=== PATIENT | female | born 1975 ===

== ENCOUNTER 2018-09-17 12:56 | Emergency (ER) | payer BC, MEDICAID ==
[2018-09-17 13:14] VITALS: BP 126/81; PULSE 78; RESP 18; TEMP 97.4; O2SAT 100
--- NOTE | 2018-09-17 14:28 | C.PDOC ---
History Of Present Illness 42 year old female presents to ED with complaint of left wrist and left 4th finger pain since last night. Patient states that she was out drinking with her friends last and may have traumatized her left hand, but is unsure. She denies any new numbness or weakness. Time Seen by Provider: 09/17/18 13:20 Chief Complaint (Nursing): Finger,Hand,&Wrist History Per: Patient History/Exam Limitations: no limitations Onset/Duration Of Symptoms: Days (1) Current Symptoms Are (Timing): Still Present Quality: "Pain" Past Medical History Reviewed: Historical Data, Nursing Documentation, Vital Signs Vital Signs: Last Vital Signs Temp 97.4 F L 09/17/18 13:10 Pulse 78 09/17/18 13:10 Resp 18 09/17/18 13:10 BP 126/81 09/17/18 13:10 Pulse Ox 100 09/17/18 13:10 - Medical History PMH: Anxiety, Depression, Hypothyroidism Surgical History: Appendectomy, Cholecystectomy Family History: States: Unknown Family Hx - Social History Hx Alcohol Use: Yes Hx Substance Use: No - Immunization History Hx Tetanus Toxoid Vaccination: No Hx Influenza Vaccination: No Hx Pneumococcal Vaccination: No Review Of Systems Constitutional: Negative for: Fever, Chills, Weakness Musculoskeletal: Positive for: Hand Pain (left wrist and left 4th digit pain ) Neurological: Negative for: Weakness, Numbness, Dizziness Physical Exam - Physical Exam Appears: Well, Non-toxic, No Acute Distress Skin: Normal Color, Warm, Dry Head: Atraumatic, Normacephalic Neck: Normal ROM, Supple Chest: Symmetrical, No Deformity Respiratory: No Accessory Muscle Use Extremity: No Swelling (left wrist), Other (Pain with movement of the left wrist) Neurological/Psych: Oriented x3, Normal Speech, Normal Cognition ED Course And Treatment O2 Sat by Pulse Oximetry: 100 - Other Rad L wrist X-Ray: Interpreted by Me (neg) Interpretation: IMPRESSION: Soft tissue swelling. No acute displaced fracture identified. If high clinical index of suspicion for occult fracture suggest further evaluation with cross-sectional imaging. Progress Note: Left wrist X-ray ordered for patient. Patient given Motrin PO. Re-evaluation. Patient feels better. Discussed results and plan with patient who expresses understanding. All questions answered and there is agreement with the plan to discharge home with instructions. Patient stable for discharge. Return if symptoms persist or worsen. Medical Decision Making Medical Decision Making: minor L wrist sprain Disposition Doctor Will See Patient In The: Office Counseled Patient/Family Regarding: Studies Performed, Diagnosis - Disposition Referrals: [facility] [Outside] [facility] [Outside] [facility] [Outside] Disposition: HOME/ ROUTINE Disposition Time: 14:27 Condition: GOOD Additional Instructions: ice packs 1/2 hour per hour, nothing hot motrin/Advil 400-600 mg every 6 hours as needed Splint as able Instructions: Wrist Sprain (DC) Forms: [facility] (Mongolian) - Clinical Impression Clinical Impression: Left wrist sprain - Scribe Statement The provider has reviewed the documentation as recorded by the Scribe (Jennifer Leigh) All medical record entries made by the Scribe were at my direction and personally dictated by me. I have reviewed the chart and agree that the record accurately reflects my personal performance of the history, physical exam, medical decision making, and the department course for this patient. I have also personally directed, reviewed, and agree with the discharge instructions and disposition.
--- NOTE | 2018-09-17 15:31 | RAD ---
PROCEDURE: Left wrist Radiographs. HISTORY: ? FOOSH COMPARISON: None available. FINDINGS: BONES: No acute displaced fracture. JOINTS: No dislocation. SOFT TISSUES: Soft tissue swelling. No evidence of radiopaque foreign body OTHER FINDINGS: None. IMPRESSION: Soft tissue swelling. No acute displaced fracture identified. If high clinical index of suspicion for occult fracture suggest further evaluation with cross-sectional imaging.
== END 2018-09-17 14:54 | disposition home or self-care (01) ==
LOC: C.ER 12:56
DX: S63.502A Unspecified sprain of left wrist, initial encounter (principal); X58.XXXA Exposure to other specified factors, initial encounter